=== PATIENT | male | born 1945 | race Caucasian/White ===

== ENCOUNTER → 2018-02-24 | Outpatient (CLI) | payer MEDICARE ==
[2018-02-27 00:06] LABS: PSA TOTAL 3.6 ng/mL (0.0-4.0)
== END ==
LOC: M SMT 09:01
DX: R97.20 Elevated prostate specific antigen [PSA] (principal)
CPT/HCPCS: 84154

== ENCOUNTER → 2020-05-03 | Outpatient (REF) | payer MEDICARE | LOC: M LAB REF 10:34 | PROVIDERS: ATTEND Otolaryngology | DX: C44.311 Basal cell carcinoma of skin of nose (principal) ==